=== PATIENT | male | born 1985 | race Caucasian/White ===

== ENCOUNTER 2021-01-30 19:18 | Emergency (ER) | payer MEDICAID ==
[~2021-01-30] VITALS: Ht 177.8 cm; Wt 63.5 kg
--- NOTE | 2021-01-30 19:44 | NUR ---
BIBS C/O NONRADIATING "CHEST PRESSURE" X1DAY "WORSE WHEN CLIMBING STAIRS" WAS SEEN AT [facility] +CHRONIC HEADACHES. PATIENT ALERT AND ORIENTED X3. AMBULATORY WITH NON LABORED BREATHING. PATIENT IN A GOWN AND IN BED 12 ON MONITOR AND POX.
--- NOTE | 2021-01-30 19:47 | NUR ---
RAC #20G S/L; PATENT AND INTACT. BLOOD COLLECTED AND SENT TO LAB
--- NOTE | 2021-01-30 19:48 | NUR ---
BROWN CHU AT PT'S BEDSIDE
[2021-01-30 19:57] LABS: BASOPHILS # (AUTO) 0.1 K/uL (0.0-0.2); BASOPHILS % (AUTO) 0.8 % (0.0-2.0); EOSINOPHILS % (AUTO) 4.5 % (0.0-6.0); HEMATOCRIT 47 % (39-51); HEMOGLOBIN 15.9 g/dL (13.5-17.5); LYMPHOCYTES # (AUTO) 2.4 K/uL (0.8-4.8); LYMPHOCYTES % (AUTO) 32.5 % (20.0-44.0); MEAN CORPUSCULAR HGB CONC 34 g/dl (31.0-36.0); MEAN CORPUSCULAR VOLUME 86 fL (80-96); MONOCYTES # (AUTO) 0.7 K/uL (0.1-1.30); MONOCYTES % (AUTO) 9.5 % (2.0-12.0); NEUTROPHILS # (AUTO) 3.9 K/uL (1.8-8.9); NEUTROPHILS % (AUTO) 52.7 % (43.0-81.0); PLATELET COUNT (AUTO) 283 K/uL (150-450); RED BLOOD CELL COUNT(AUTO) 5.48 MIL/uL (4.5-6.0); WHITE BLOOD COUNT (AUTO) 7.4 K/uL (4.3-11.0)
[2021-01-30] MEDS ORDERED: IBUP-1955 PO (20:04)
[2021-01-30 20:08] LABS: CALCIUM, SERUM 9.4 mg/dL (8.5-10.1); CARBON DIOXIDE 32 mmol/L (21-32); CHLORIDE 102 mmol/L (98-107); GLUCOSE 92 mg/dL (74-106); POTASSIUM 3.9 mmol/L (3.5-5.1); SODIUM SERUM 142 mmol/L (136-145); UREA NITROGEN, BLOOD 18 mg/dL (7-18)
[2021-01-30 20:18] LABS: ALANINE AMINOTRANSFERASE 33 U/L (12-78); ALBUMIN 4.4 g/dL (3.4-5.0); ALKALINE PHOSPHATASE 96 U/L (46-116); ASPARTATE AMINOTRANSFERASE 18 U/L (15-37); BILIRUBIN,DIRECT 0.1 mg/dL (0.0-0.2); BILIRUBIN,TOTAL 0.4 mg/dL (0.2-1.0); TOTAL PROTEIN, SERUM 8.1 g/dL (6.4-8.2)
[2021-01-30] MEDS ORDERED: ASPIRIN 81 MG TAB.CHEW PO ONE (21:00)
--- NOTE | 2021-01-30 21:06 | NUR ---
AMBULATED PATIENT AROUND THE ER MUTIPLE TIMES TO CHECK FOR EXERTIONAL CHEST PAIN. PT DID NOT REPORT ANY CHEST PAIN FOR EFFORT WAS EXERTED. KIMBERLEY CLIFFORD WAS MADE AWARE
[2021-01-30] MEDS ORDERED: ASPIRIN 325 MG TABLET ONE (21:18)
[2021-01-30] MEDS ORDERED: ASPIRIN 81 MG TAB.CHEW ONE (21:21)
--- NOTE | 2021-01-30 21:26 | NUR ---
PT VERBALIZED THAT HE IS FEELING THE CRAMP ON HIS LEFT CHEST BUT NOT BAD WHEN IT HAPPENED EARLIER.
[2021-01-30] MEDS ORDERED: MORPHINE SULFATE INJ 2 MG/ML DISP.SYRIN IV ONE (21:30)
[2021-01-30] MEDS ORDERED: ONDANSETRON HCL/PF 4 MG/2 ML VIAL IVP ONE (21:30)
[2021-01-30] MEDS ORDERED: MORPHINE SULFATE INJ 4 MG/ML DISP.SYRIN ONE (21:34)
[2021-01-30] MEDS ORDERED: ONDANSETRON HCL/PF 4 MG/2 ML VIAL ONE (21:34)
--- NOTE | 2021-01-30 21:53 | NUR ---
KELSEYID SWABBED, SENT TO LAB.
--- NOTE | 2021-01-30 22:30 | NUR ---
spoke with janel caseworker intake for clinical information. pt is capitated to [facility] and will be transferred. will be calling back for transfer info
--- NOTE | 2021-01-30 23:37 | NUR ---
SPOKE WITH BETH FROM [facility]. WILL BE GETTING A BED AND WILL CALL FOR PEER TO PEER.
[2021-01-31] MEDS ORDERED: ACETAMINOPHEN 325 MG TABLET ONE (02:07)
--- NOTE | 2021-01-31 02:11 | NUR ---
EPIC PANEL PAGED
[2021-01-31] MEDS ORDERED: ACETAMINOPHEN 325 MG TABLET PO ONE (02:30)
--- NOTE | 2021-01-31 04:16 | NUR ---
Patient discharged to home in stable condition. Written and verbal after care instructions given. Patient verbalizes understanding of instruction. IV discontinued and gentle pressure applied to site with gauze without complication.
[2021-01-31 04:25] VITALS: BP 122/82
== END 2021-01-31 04:20 | disposition home or self-care (01) ==
LOC: ER 19:22
DX: I20.9 Angina pectoris, unspecified (principal); Z87.891 Personal history of nicotine dependence; Z20.822 Contact with and (suspected) exposure to COVID-19; Z88.8 Allergy status to other drugs, medicaments and biological substances; R03.0 Elevated blood-pressure reading, without diagnosis of hypertension; Z82.79 Family history of other congenital malformations, deformations and chromosomal abnormalities
CPT/HCPCS: 36415 ×2; 71045; 80048; 80076; 83690; 84484 ×3; 85025; 87081; 87426; 93005; 96374; 99285; C9803; J2405; J2270

== ENCOUNTER 2021-02-18 20:03 | Emergency (ER) | payer MEDICAID ==
[~2021-02-18] VITALS: Ht 177.8 cm; Wt 64.9 kg
[~2021-02-18 20:03] MED LIST: IBUP-1955 PO
--- NOTE | 2021-02-18 20:30 | NUR ---
BIB SELF WITH C/C OF FEVER LAST NIGHT AND FEELING HIS HR IS HIGH, FEELING OF PAIN ON THE LEFT SIDE OF THE CHEST ALONG WITH HIS SURGERY LINE V/S CHECKED AND RECORDED NO SIGN OF SOB ON RA SPO2 97% NO FEVER WILL CONT TO MONITOR
[2021-02-18] MEDS ORDERED: IV NS 0.9% 1,000 ML BAG IV ONE (21:00)
[2021-02-18 21:27] LABS: BILIRUBIN,URINE NEGATIVE (NEGATIVE); COLOR,URINE YELLOW (YELLOW); LEUKOCYTE ESTERASE ,URINE NEGATIVE (NEGATIVE); NITRITE, URINE NEGATIVE (NEGATIVE); PROTEIN,URINE NEGATIVE (NEGATIVE); UGLUCOSE NEGATIVE (NEGATIVE); UROBILINOGEN,URINE 0.2 EU/dL (0.2)
[2021-02-18] MEDS ORDERED: IBUP-1955 PO (21:50)
--- NOTE | 2021-02-18 22:00 | NUR ---
COVID RAPID AND INFLUENZA RAPID SPECIMEN SEND TO LAB
--- NOTE | 2021-02-18 22:28 | NUR ---
Patient discharged to home in stable condition. Written and verbal after care instructions given. Patient verbalizes understanding of instruction.IV removed. Catheter intact and site benign. Pressure and 4x4 applied to site. No bleeding noted.Shashi is ambulatory with a steady gait walking without assistance to Exit
[2021-02-18 22:29] VITALS: BP 120/85
== END 2021-02-18 22:29 | disposition home or self-care (01) ==
LOC: ER 20:12
DX: R30.0 Dysuria (principal); M79.10 Myalgia, unspecified site; Z20.822 Contact with and (suspected) exposure to COVID-19; Z88.8 Allergy status to other drugs, medicaments and biological substances
CPT/HCPCS: 81003; 87426; 87804; 96360; 99284; C9803; J7030

== ENCOUNTER 2021-03-03 15:48 | Emergency (ER) | payer MEDICAID ==
[~2021-03-03] VITALS: Ht 177.8 cm; Wt 64.9 kg
[2021-03-03 16:06] VITALS: BP 123/79
--- NOTE | 2021-03-03 16:29 | NUR ---
dany bruno at bedside for eval.
[2021-03-03] MEDS ORDERED: ONDANSETRON 4 MG TAB.RAPDIS ONE (16:36)
--- NOTE | 2021-03-03 16:45 | NUR ---
covid swab collected. sent to lab.
--- NOTE | 2021-03-03 16:51 | NUR ---
biometric technician at bedside for LLE duplex ultrasound
[2021-03-03] MEDS ORDERED: ONDANSETRON 4 MG TAB.RAPDIS SL ONE (17:00)
[2021-03-03 17:05] LABS: BILIRUBIN,URINE NEGATIVE (NEGATIVE); COLOR,URINE YELLOW (YELLOW); LEUKOCYTE ESTERASE ,URINE NEGATIVE (NEGATIVE); NITRITE, URINE NEGATIVE (NEGATIVE); PH,URINE 6.5 (5.0-8.0); PROTEIN,URINE NEGATIVE (NEGATIVE); UGLUCOSE NEGATIVE (NEGATIVE); UROBILINOGEN,URINE 0.2 EU/dL (0.2)
[2021-03-03 17:45] LABS: BACTERIA,URINE None seen /HPF (None Seen); RBC,URINE 0-2 /HPF (0-2); SQUAMOUS EPITHELIAL CELL,UR Rare /HPF (None Seen); URINE AMORPHOUS URATE Few /HPF (None Seen); WBC,URINE 0-2 /HPF (0-3)
--- NOTE | 2021-03-03 18:45 | NUR ---
GUNJAN CHU AT BEDSIDE FOR RE-EVAL AND ACI
== END 2021-03-03 18:50 | disposition home or self-care (01) ==
LOC: ER 15:51
DX: M79.662 Pain in left lower leg (principal); R11.0 Nausea; R53.81 Other malaise; Z56.3 Stressful work schedule; R82.998 Other abnormal findings in urine
CPT/HCPCS: 81001; 87426; 87491; 87591; 93971; 99284; C9803; Q0162